=== PATIENT | male | born 2000 | race Caucasian/White ===

== ENCOUNTER 2021-02-03 11:09 | Emergency (ER) | payer OTHER | END 2021-02-03 13:23 | disposition home or self-care (01) | LOC: ER1 11:09 | DX: S61.012A Laceration without foreign body of left thumb without damage to nail, initial encounter (principal); W26.8XXA Contact with other sharp object(s), not elsewhere classified, initial encounter | CPT/HCPCS: 12002; 73130; 99283 ==